=== PATIENT | male | born 1985 | race Caucasian/White ===

== ENCOUNTER 2017-09-14 18:41 | Emergency (ER) | payer OTHER ==
--- NOTE | 2017-09-14 19:50 | ED Physician Chart ---
ED Chief Complaint/HPI - Patient Information Date Seen:: 09/14/17 Time Seen:: 19:49 Chief Complaint:: Head trauma History of Present Illness:: 32 yo male had a head trauma when the top of his head hit a forklift while standing up 4 days ago. There was no loss of consciousness. He developed some headache, dizziness and nausea afterwards. These symptoms became worse during past 4 days. He denied any vomiting. Allergies:: Allergies Allergy/AdvReac Type Severity Reaction Status Date / Time No Known Allergies Allergy Verified 09/14/17 19:02 Vitals:: Vital Signs - 8 hr 09/14/17 19:02 Temp 98.5 F HR 74 RR 16 BP 132/86 O2 Sat % 99 ED Review of Systems - Review of Systems General/Constitutional: No fever Skin: No skin lesions Head: Headache Eyes: No pain ENT: No nasal drainage Neck: No neck pain Cardio Vascular: No chest pain Pulmonary: No SOB GI: Nausea, No vomiting Musculoskeletal: No bone or joint pain Neurological: Dizziness ED Past Medical History - Past Medical History Past Medical History: No significant medical hx Social History: Non Smoker, Alcohol, No Drug Use Surgical History: None Family Medical History - Family Member Mother History Unknown: Yes ED Physical Exam - Physical Examination General/Constitutional: Awake, Alert Other Head comments:: Tenderness on the mid frontal parietal area Eyes: PERRL Skin: No skin lesions ENMT: Nasal exam nl Neck: No nuchal rigidity Respiratory: Clear to Auscultation Cardio Vascular: RRR, No murmur, gallop, rubs, NL S1 S2 GI: No tenderness/rebounding/guarding Extremities: normal strength in all extremities Neuro/Psych: No focal deficits ED Labs/Radiology/EKG Results - Radiology Results Results: CT head without contrast: no acute disease ED Assessment - Assessment General Assessment: Concussion Assessment/Comments:: CT head without contrast D/c home Tylenol PO prn if headache F/u PCP or return to ER if symptoms worsen ED Septic Shock - . Is Septic Shock (SBP<90, OR Lactate>4 mmol\L) present?: No - <6hrs of presentation: Vital Signs: Vital Signs - 8 hr 09/14/17 19:02 Temp 98.5 F HR 74 RR 16 BP 132/86 O2 Sat % 99 ED Reassessment (Disposition) - Reassessment Reassessment Condition:: Unchanged - Patient Disposition Discharge/Transfer:: Home ED Discharge Plan - Patient Disposition Admit/Discharge/Transfer: PT DISCHARGED HOME Condition at Disposition: Stable Instructions: Post-Concussion Syndrome, [id number] Additional Instructions: follow up with your doctor in 2-3 days and to come back to er if symptoms worsen.
--- NOTE | 2017-09-15 08:08 | Diagnostic Imaging Report ---
CT scan of the abdomen and pelvis without intravenous contrast History: Trauma Total DLP equals 671 CTDI equals 37.2 Axial sections were obtained from the xiphoid process down to the pubic symphysis. The liver demonstrates a normal size and contour. No focal lesions are seen. The spleen appears normal. No abnormalities are seen in the region of the pancreas. The kidneys appear normal bilaterally. The exam of the pelvis demonstrates preservation of normal fat planes. No abnormal soft tissue masses. No abnormal fluid collections. Impression: Negative examination
== END 2017-09-14 21:45 | disposition home or self-care (01) ==
LOC: ER 18:41
DX: S06.0X9A Concussion with loss of consciousness of unspecified duration, initial encounter (principal); X58.XXXA Exposure to other specified factors, initial encounter; Y93.89 Activity, other specified; Y92.89 Other specified places as the place of occurrence of the external cause; Y99.8 Other external cause status
CPT/HCPCS: 70450-TC; Z7502